=== PATIENT | male | born 1950 | race African-American/Black ===

== ENCOUNTER 2016-08-22 09:23 | Day surgery (SDC) | payer OTHER ==
--- NOTE | ~2016-08-22 | EGD ---
EGD REPORT [facility] [address] [place] [id number] NAME: CHARLES THOMAS : [birth year] STATUS : REG [facility]#: [id number] AGE: 66 ADM/REG DATE : 08/22/16 MR#: [id number] REPORT SERV DATE: 08/22/16 DICTATED BY: JOEL PORTILLO DATE: 08/22/16 REPORT STATUS : Draft TRANSCRIBED BY: [employer] DATE: 08/22/16 [facility] Patient Name: Charles Thomas Date of : 1950 Attending MD: JOEL PORTILLO, Procedure Date No Time: 08/22/2016 Procedure: Colonoscopy Indications: High risk colon cancer surveillance: Personal history of colonic polyps Medicines: Monitored Anesthesia Care Complications: No immediate complications. Estimated blood loss: None. Procedure: Pre-Anesthesia Assessment: - ASA Grade Assessment: III - A patient with severe systemic disease. After I obtained informed consent, the scope was passed under direct vision. Throughout the procedure, the patient's blood pressure, pulse, and oxygen saturations were monitored continuously. The CF [id number] was introduced through the anus and advanced to the cecum, identified by appendiceal orifice and ileocecal valve. The colonoscopy was performed without difficulty. The patient tolerated the procedure well. The quality of the bowel preparation was adequate. Findings: The perianal and digital rectal examinations were normal. Many small-mouthed diverticula were found in the sigmoid colon and in the descending colon. A sessile polyp was found in the transverse colon. The polyp was 10 mm in size. The polyp was removed with a hot snare. Resection and retrieval were complete. Verification of patient identification for the specimen was done. Estimated blood loss was minimal. Two sessile polyps were found in the sigmoid colon. The polyps were 4 to 5 mm in size. These polyps were removed with a cold snare. Resection and retrieval were complete. Verification of patient identification for the specimen was done. Estimated blood loss was minimal. Internal hemorrhoids were found, and they were Grade I (internal hemorrhoids that do not prolapse). The exam was otherwise without abnormality. Impression: - Diverticulosis in the sigmoid colon and in the descending colon. - One 10 mm polyp in the transverse colon. Resected and retrieved. - Two 4 to 5 mm polyps in the sigmoid colon. Resected EGD REPORT [place] [id number] [facility] [place]. [address] NAME: CHARLES THOMAS : [birth year] STATUS : REG [facility] PAT#: [id number] AGE: 66 ADM/REG DATE : 08/22/16 MR#: [id number] REPORT SERV DATE: 08/22/16 DICTATED BY: JOEL PORTILLO DATE: 08/22/16 REPORT STATUS : Draft TRANSCRIBED BY: [employer] DATE: 08/22/16 and retrieved. - Internal hemorrhoids. - The examination was otherwise normal. Recommendation: - Patient has a contact number available for emergencies. The signs and symptoms of potential delayed complications were discussed with the patient. Return to normal activities tomorrow. Written discharge instructions were provided to the patient. - Return to previous diet. - Return to previous diet. - Continue present medications. - Await pathology results. - Repeat colonoscopy in 3 years for surveillance. Procedure Code(s): --- Professional --- 29545, Colonoscopy, flexible, proximal to splenic flexure; with removal of tumor(s), polyp(s), or other lesion(s) by snare technique Diagnosis Code(s): --- Professional --- K64.0, First degree hemorrhoids K57.30, Diverticulosis of large intestine without perforation or abscess without bleeding D12.5, Benign neoplasm of sigmoid colon D12.3, Benign neoplasm of transverse colon Z86.010, Personal history of colonic polyps CPT copyright 2013 [employer]. All rights reserved. The codes documented in this report are preliminary and upon tailman review may be revised to meet current compliance requirements. JOEL PORTILLO, 08/22/2016 11:56 AM Number of Addenda: 0 Note Initiated On: 08/22/2016 11:00 AM [address] [place] [id number]
[~2016-08-22 09:23] MED LIST: CARDCD120 PO; DULERA 100 MCG/13 GM INH; FLOMAX4 PO; HYGROTON 25 MG25 MG PO; KAON-CL-1010 MEQ PO; KEPPRA750 MG PO; LEVAQUIN750 MG PO; LISINOPRIL40 MG PO; LOP25 PO; NOVOLOGMIX SC; P20 PO; PERCOCET1 TA2 PO; PROSCAR5 PO; REM15 PO; SEROQUEL1C PO; ZOL100 PO
== END 2016-08-22 23:59 | disposition home or self-care (01) ==
LOC: DMU 09:23
PROVIDERS: Internal Medicine Gastroenterology
PROC: 0DBL8ZX Excision of Transverse Colon, Via Natural or Artificial Opening Endoscopic, Diagnostic (ICD-10-PCS; 2016-08-22)
PROC: 0DBN8ZX Excision of Sigmoid Colon, Via Natural or Artificial Opening Endoscopic, Diagnostic (ICD-10-PCS; principal; 2016-08-22 10:30)
DX: D12.5 Benign neoplasm of sigmoid colon (principal); D12.3 Benign neoplasm of transverse colon; K64.0 First degree hemorrhoids; K57.30 Diverticulosis of large intestine without perforation or abscess without bleeding; I10 Essential (primary) hypertension; G47.33 Obstructive sleep apnea (adult) (pediatric); E11.9 Type 2 diabetes mellitus without complications; F41.9 Anxiety disorder, unspecified; F32.9 Major depressive disorder, single episode, unspecified; Z86.010 Personal history of colon polyps; Z79.4 Long term (current) use of insulin; Z79.899 Other long term (current) drug therapy; Z90.5 Acquired absence of kidney
CPT/HCPCS: 82962; 88305